=== PATIENT | female | born 2000 | race Two or more races ===

== ENCOUNTER 2024-04-11 00:53 | Inpatient (IN) | payer MEDICAID ==
[~2024-04-11] VITALS: Ht 157.5 cm; Wt 65.3 kg
[2024-04-11 02:09] LABS: EOSINOPHILS % (AUTO) 0.4 % (1.0-6.0); HEMATOCRIT 41.3 % (36-46); LYMPHOCYTES # (AUTO) 3.4 K/uL (1.0-4.8); LYMPHOCYTES % (AUTO) 32.6 % (22.0-44.0); MEAN CORPUSCULAR HEMOGLOBIN 30.2 pg (26.0-34.0); MEAN CORPUSCULAR HGB CONC 33.9 G/dL (31.0-37.0); MEAN CORPUSCULAR VOLUME 89 fL (80-100); MONOCYTES # (AUTO) 0.6 K/uL (0.1-1.0); MONOCYTES % (AUTO) 5.8 % (2.0-9.0); NEUTROPHILS # (AUTO) 6.3 K/uL (1.8-7.7); NEUTROPHILS % (AUTO) 60.2 % (40.0-70.0); PLATELET COUNT (AUTO) 258 K/uL (150-450); RED BLOOD CELL COUNT(AUTO) 4.64 MIL/uL (4.00-5.20); WHITE BLOOD COUNT (AUTO) 10.4 K/uL (4.5-11.0)
[2024-04-11 02:11] LABS: ANION GAP 8 mmol/L (8-16); CALCIUM, TOTAL 8.8 mg/dL (8.8-10.5); CARBON DIOXIDE 27 mmol/L (22-29); CHLORIDE 101 mmol/L (98-107); GLOMERULAR FILTR. RATE CALC > 60 mL/min (>60); GLUCOSE,RANDOM 102 mg/dL (70-110); POTASSIUM 3.2 mmol/L (3.5-5.1); SODIUM SERUM 136 mmol/L (136-145); UREA NITROGEN, BLOOD 13 mg/dL (7-18)
[2024-04-11 02:17] LABS: ALANINE AMINOTRANSFERASE 13 U/L (12-78); ALBUMIN 4.2 g/dL (3.4-5.0); ALKALINE PHOSPHATASE 67 U/L (46-116); ASPARTATE AMINOTRANSFERASE 11 U/L (15-37); BILIRUBIN,TOTAL 0.4 mg/dL (0.1-1.0)
[2024-04-11 02:23] LABS: ALCOHOL, BLOOD (SERUM) < 3 mg/dL (0-10)
[2024-04-11] MEDS ORDERED: ZOLPIDEM TARTRATE 10 MG TABLET PO PRN (02:45)
[2024-04-11] MEDS ORDERED: HALOPERIDOL 5 MG TABLET PO PRN (02:45)
[2024-04-11] MEDS ORDERED: LORazepam 2 MG TABLET PO PRN (02:45)
[2024-04-11 03:00] LABS: COVID AG,FIA SOURCE NASAL SWAB
[2024-04-11 03:17] LABS: SARS-COV2 (COVID) ANTIGEN,FIA Negative (Negative)
[2024-04-11] MEDS: POTASSIUM CHLORIDE 20 MEQ ER TABLET PO ONE ×2 (03:50→04:14)
[2024-04-11 06:03] VITALS: BP 137/82; PULSE 90; RESP 18; TEMP 97.5
[2024-04-11 06:11] VITALS: BP 137/82; PULSE 90; RESP 18; TEMP 97.5; O2SAT 99
[2024-04-11 08:40] VITALS: BP 122/85; PULSE 100; RESP 17; TEMP 97.5; O2SAT 100
[2024-04-11] MEDS ORDERED: MAG HYDROX/ALUMINUM HYD/SIMETH ES 30 ML SUSPENSION UDCUP PO PRN (10:45)
[2024-04-11] MEDS ORDERED: LOPERAMIDE HCL 2 MG CAPSULE PO PRN (10:45)
[2024-04-11] MEDS ORDERED: IBUPROFEN 400 MG TABLET PO PRN (10:45)
[2024-04-11] MEDS ORDERED: ALBUTEROL SULFATE HFA 90 MCG/PUFF 8 GM INHALER IH PRN (10:45)
[2024-04-11] MEDS ORDERED: DOCUSATE SODIUM 100 MG CAPSULE PO PRN (10:45)
[2024-04-11] MEDS ORDERED: MAGNESIUM HYDROXIDE SUSPENSION 30 ML UDCUP PO PRN (10:45)
[2024-04-11] MEDS ORDERED: NICOTINE 14 MG/24 HOUR PATCH TD PRN (10:45)
[2024-04-11] MEDS ORDERED: ONDANSETRON HCL 4 MG TABLET PO PRN (10:45)
[2024-04-11] MEDS ORDERED: GuaiFENesin/D-METHORPHAN [SUGAR-FREE] 200-20MG/10 ML SYRUP UDCUP PO PRN (10:45)
[2024-04-11] MEDS ORDERED: PETROLATUM,WHITE 28 GM JELLY TP PRN (10:45)
[2024-04-11] MEDS ORDERED: ACETAMINOPHEN 325 MG TABLET PO PRN (10:45)
[2024-04-11] MEDS ORDERED: CloNIDine HCL 0.1 MG TABLET PO PRN (10:45)
[2024-04-11] MEDS: OLANZapine 5 MG TABLET PO SCH (16:05)
[2024-04-11 20:22] VITALS: BP 112/77; PULSE 81; RESP 16; TEMP 98.1; O2SAT 98
[2024-04-12 11:47] LABS: HEMOGLOBIN A1C 5.1 % (3.8-5.6)
[2024-04-12 12:10] LABS: THYROID STIMULATING HORMONE 0.79 uIU/mL (0.36-3.74)
[2024-04-12 12:43] LABS: CHOL/HDL RATIO 4.5 (3.9-5.7)
[2024-04-12 17:30] VITALS: BP 110/89; PULSE 98; RESP 18; TEMP 98.5; O2SAT 99
[2024-04-12 21:12] VITALS: BP 124/73; PULSE 104; RESP 18; TEMP 97.5; O2SAT 99
[2024-04-13 08:50] VITALS: BP 114/82; PULSE 99; RESP 20; TEMP 97.9; O2SAT 100
[2024-04-14 08:18] VITALS: BP 131/76; PULSE 100; RESP 12; TEMP 98; O2SAT 99
[2024-04-14 21:29] VITALS: BP 144/94; PULSE 87; RESP 16; TEMP 98.1; O2SAT 97
[2024-04-15 08:32] VITALS: BP 122/76; PULSE 82; RESP 16; TEMP 97.6; O2SAT 96
[2024-04-15 20:49] VITALS: BP 127/74; PULSE 81; RESP 18; TEMP 98; O2SAT 97
[2024-04-16 08:29] VITALS: BP 137/72; PULSE 107; RESP 18; TEMP 97.8; O2SAT 98
[2024-04-16 08:47] LABS: APPEARANCE,URINE TURBID (CLEAR); BILIRUBIN,URINE NEGATIVE (NEGATIVE); COLOR,URINE DARK YELLOW (YELLOW); GLUCOSE, URINE (UA) NEGATIVE (NEGATIVE); KETONES,URINE NEGATIVE (NEGATIVE); LEUKOCYTE ESTERASE ,URINE NEGATIVE (NEGATIVE); NITRATE,URINE NEGATIVE (NEGATIVE); OCCULT BLOOD,URINE SMALL (NEGATIVE); PROTEIN,URINE NEGATIVE (NEGATIVE); SPECIFIC GRAVITIY, URINE 1.031 (1.003-1.030); UROBILINOGEN,URINE <=1.0 mg/dL (<=1.0)
[2024-04-16 08:55] LABS: AMORPHOUS SEDIMENT,UR Many /LPF (None Seen); BACTERIA,URINE None Seen /HPF (None Seen); RBC,URINE 0-2 /HPF (0-2); WBC,URINE None Seen /HPF (0-5)
[2024-04-16 08:58] LABS: ALCOHOL, URINE DRUG SCREEN NEGATIVE (NEGATIVE); AMPHET/METH SCREEN,URINE NEGATIVE (NEGATIVE); BARBITURATE SCREEN, URINE NEGATIVE (NEGATIVE); BENZODIAZEPINES SCREEN,URINE NEGATIVE (NEGATIVE); CANNABINOID SCREEN,URINE NEGATIVE (NEGATIVE); COCAINE SCREEN,URINE NEGATIVE (NEGATIVE); METHADONE SCREEN, URINE NEGATIVE (NEGATIVE); OPIATE SCREEN,URINE NEGATIVE (NEGATIVE); PHENCYCLIDINE SCREEN,URINE NEGATIVE (NEGATIVE)
[2024-04-16 21:28] VITALS: BP 136/97; PULSE 91; RESP 16; TEMP 97.5; O2SAT 99
[2024-04-17 09:52] VITALS: BP 113/95; PULSE 104; RESP 18; TEMP 97.2; O2SAT 99
[2024-04-17 23:30] VITALS: BP 114/89; PULSE 101; RESP 18; TEMP 97.5; O2SAT 98
[2024-04-18 08:17] VITALS: BP 154/70; PULSE 92; RESP 16; TEMP 97.6; O2SAT 100
[2024-04-18] MEDS ORDERED: OLAN5TAB52 PO (13:54)
== END 2024-04-18 16:54 | disposition home or self-care (01) | DRG 750 ==
LOC: EMS 00:56 → B3A 03:01
PROVIDERS: ADMIT Psychiatry & Neurology Child & Adolescent Psychiatry; ATTEND Psychiatry & Neurology Child & Adolescent Psychiatry
PROC: GZHZZZZ Group Psychotherapy (ICD-10-PCS; principal; 2024-04-12)
PROC: GZ52ZZZ Individual Psychotherapy, Cognitive (ICD-10-PCS; 2024-04-12)
DX: F25.9 Schizoaffective disorder, unspecified (principal); R45.851 Suicidal ideations; E87.6 Hypokalemia; F41.9 Anxiety disorder, unspecified; Z20.822 Contact with and (suspected) exposure to COVID-19; F12.90 Cannabis use, unspecified, uncomplicated; Z91.148 Patient's other noncompliance with medication regimen for other reason
CPT/HCPCS: 80053; 80061; 80307; 81001; 83036; 84132; 84443; 84703; 85025; G0480

== ENCOUNTER 2024-10-13 22:30 | Emergency (ER) | payer OTHER ==
[~2024-10-13] VITALS: Ht 160 cm; Wt 72.7 kg
[~2024-10-13 22:30] MED LIST: OLAN5TAB52 PO
[2024-10-13 23:13] VITALS: TEMP 98.9
[2024-10-13 23:20] LABS: BASOPHILS % (AUTO) 0.8 % (0.0-2.0); EOSINOPHILS % (AUTO) 0.6 % (1.0-6.0); HEMATOCRIT 41.2 % (36-46); HEMOGLOBIN 13.8 g/dL (12.0-16.0); LYMPHOCYTES # (AUTO) 1.9 K/uL (1.0-4.8); LYMPHOCYTES % (AUTO) 25.2 % (22.0-44.0); MEAN CORPUSCULAR HEMOGLOBIN 30.3 pg (26.0-34.0); MEAN CORPUSCULAR HGB CONC 33.6 G/dL (31.0-37.0); MEAN CORPUSCULAR VOLUME 90 fL (80-100); MONOCYTES # (AUTO) 0.5 K/uL (0.1-1.0); MONOCYTES % (AUTO) 6.4 % (2.0-9.0); PLATELET COUNT (AUTO) 231 K/uL (150-450); RED BLOOD CELL COUNT(AUTO) 4.57 MIL/uL (4.00-5.20); RED CELL DISTRIBUTION WIDTH 13.3 % (11.5-14.5); WHITE BLOOD COUNT (AUTO) 7.5 K/uL (4.5-11.0)
[2024-10-13 23:50] LABS: ALCOHOL, BLOOD (SERUM) < 3 mg/dL (0-10)
[2024-10-14 00:11] LABS: ANION GAP 11 mmol/L (8-16); CALCIUM, TOTAL 9.2 mg/dL (8.8-10.5); CARBON DIOXIDE 25 mmol/L (22-29); CHLORIDE 103 mmol/L (98-107); CREATININE 0.63 mg/dL (0.60-1.30); GLOMERULAR FILTR. RATE CALC > 60 mL/min (>60); GLUCOSE,RANDOM 97 mg/dL (70-110); POTASSIUM 3.8 mmol/L (3.5-5.1); SODIUM SERUM 139 mmol/L (136-145); UREA NITROGEN, BLOOD 16 mg/dL (7-18)
[2024-10-14 01:21] VITALS: BP 122/78; PULSE 90; RESP 16; O2SAT 100
[2024-10-14 01:26] LABS: COVID AG,FIA SOURCE NASAL SWAB
[2024-10-14 01:31] LABS: ALCOHOL, URINE DRUG SCREEN NEGATIVE (NEGATIVE); AMPHET/METH SCREEN,URINE NEGATIVE (NEGATIVE); BARBITURATE SCREEN, URINE NEGATIVE (NEGATIVE); BENZODIAZEPINES SCREEN,URINE NEGATIVE (NEGATIVE); CANNABINOID SCREEN,URINE NEGATIVE (NEGATIVE); COCAINE SCREEN,URINE NEGATIVE (NEGATIVE); METHADONE SCREEN, URINE NEGATIVE (NEGATIVE); OPIATE SCREEN,URINE NEGATIVE (NEGATIVE); PHENCYCLIDINE SCREEN,URINE NEGATIVE (NEGATIVE)
[2024-10-14 01:36] LABS: SARS-COV2 (COVID) ANTIGEN,FIA Negative (Negative)
== END 2024-10-14 06:39 | disposition home or self-care (01) ==
LOC: EMS 22:38
DX: F25.9 Schizoaffective disorder, unspecified (principal); Z65.3 Problems related to other legal circumstances; Z20.822 Contact with and (suspected) exposure to COVID-19
CPT/HCPCS: 99285; 87426; 80048; 85025; 36415; 80307; G0480

== ENCOUNTER 2024-10-31 18:19 | Inpatient (IN) | payer MEDICAID, OTHER ==
[~2024-10-31] VITALS: Ht 157.5 cm; Wt 70.8 kg
[2024-10-31 19:48] LABS: EOSINOPHILS % (AUTO) 0.7 % (1.0-6.0); HEMATOCRIT 41.5 % (36-46); HEMOGLOBIN 13.9 g/dL (12.0-16.0); LYMPHOCYTES # (AUTO) 2.4 K/uL (1.0-4.8); LYMPHOCYTES % (AUTO) 31.6 % (22.0-44.0); MEAN CORPUSCULAR HEMOGLOBIN 30.1 pg (26.0-34.0); MEAN CORPUSCULAR HGB CONC 33.4 G/dL (31.0-37.0); MEAN CORPUSCULAR VOLUME 90 fL (80-100); MONOCYTES # (AUTO) 0.4 K/uL (0.1-1.0); MONOCYTES % (AUTO) 5.2 % (2.0-9.0); NEUTROPHILS # (AUTO) 4.7 K/uL (1.8-7.7); NEUTROPHILS % (AUTO) 61.5 % (40.0-70.0); PLATELET COUNT (AUTO) 240 K/uL (150-450); RED CELL DISTRIBUTION WIDTH 12.8 % (11.5-14.5); WHITE BLOOD COUNT (AUTO) 7.7 K/uL (4.5-11.0)
[2024-10-31 20:00] LABS: ANION GAP 11 mmol/L (8-16); CARBON DIOXIDE 26 mmol/L (22-29); CHLORIDE 103 mmol/L (98-107); CREATININE 0.78 mg/dL (0.60-1.30); GLOMERULAR FILTR. RATE CALC > 60 mL/min (>60); GLUCOSE,RANDOM 94 mg/dL (70-110); POTASSIUM 3.9 mmol/L (3.5-5.1); SODIUM SERUM 140 mmol/L (136-145); UREA NITROGEN, BLOOD 15 mg/dL (7-18)
[2024-10-31 20:02] LABS: ALCOHOL, BLOOD (SERUM) < 3 mg/dL (0-10)
[2024-11-01 00:27] LABS: COVID AG,FIA SOURCE NASAL SWAB
[2024-11-01 00:32] LABS: SARS-COV2 (COVID) ANTIGEN,FIA Negative (Negative)
[2024-11-01 14:15] LABS: PH,URINE DRUG SCREEN 5.5 (5.0-8.0)
[2024-11-01 14:25] LABS: ALCOHOL, URINE DRUG SCREEN NEGATIVE (NEGATIVE); AMPHET/METH SCREEN,URINE NEGATIVE (NEGATIVE); BARBITURATE SCREEN, URINE NEGATIVE (NEGATIVE); BENZODIAZEPINES SCREEN,URINE NEGATIVE (NEGATIVE); CANNABINOID SCREEN,URINE NEGATIVE (NEGATIVE); COCAINE SCREEN,URINE NEGATIVE (NEGATIVE); METHADONE SCREEN, URINE NEGATIVE (NEGATIVE); OPIATE SCREEN,URINE NEGATIVE (NEGATIVE); PHENCYCLIDINE SCREEN,URINE NEGATIVE (NEGATIVE)
[2024-11-01] MEDS ORDERED: HALOPERIDOL 5 MG TABLET PO PRN (15:45)
[2024-11-01] MEDS ORDERED: ZOLPIDEM TARTRATE 10 MG TABLET PO PRN (15:45)
[2024-11-01 17:02] VITALS: BP 109/88; PULSE 102; RESP 17; TEMP 97.5; O2SAT 100
[2024-11-01 17:04] VITALS: BP 109/88; PULSE 102; RESP 17; TEMP 97.5; O2SAT 96
[2024-11-01] MEDS ORDERED: INFLUENZA VIRUS VACCINE TVS (6MO+) 2024-25/PF 45 MCG/0.5 ML SYRINGE IM. ONE (17:45)
[2024-11-01] MEDS: LORazepam 2 MG TABLET PO PRN (21:10)
[2024-11-01 21:30] VITALS: BP 122/63; PULSE 98; RESP 18; TEMP 98
[2024-11-02 08:42] VITALS: BP 108/79; PULSE 100; RESP 16; TEMP 98.2; O2SAT 98
[2024-11-02 10:13] LABS: HEMOGLOBIN A1C 4.9 % (3.8-5.6)
[2024-11-02 10:31] LABS: ALANINE AMINOTRANSFERASE 19 U/L (12-78); ALBUMIN 3.1 g/dL (3.4-5.0); ALKALINE PHOSPHATASE 55 U/L (46-116); ANION GAP 7 mmol/L (8-16); ASPARTATE AMINOTRANSFERASE 15 U/L (15-37); BILIRUBIN,TOTAL 0.3 mg/dL (0.1-1.0); CALCIUM, TOTAL 8.5 mg/dL (8.8-10.5); CARBON DIOXIDE 26 mmol/L (22-29); CHLORIDE 105 mmol/L (98-107); CHOL/HDL RATIO 3.2 (3.9-5.7); CHOLESTEROL 138 mg/dL (131-200); CREATININE 0.67 mg/dL (0.60-1.30); FREE T4 (FREE THYROXINE) 1.05 ng/dL (0.76-1.46); GLOMERULAR FILTR. RATE CALC > 60 mL/min (>60); GLUCOSE,RANDOM 100 mg/dL (70-110); HCG,QUANTITATIVE < 1 mIU/mL (0-6); HDL CHOLESTEROL 43 mg/dL (40-60); LDL CHOL (CALC.) 71 mg/dL (0-130); POTASSIUM 3.5 mmol/L (3.5-5.1); SODIUM SERUM 138 mmol/L (136-145); THYROID STIMULATING HORMONE 3.63 uIU/mL (0.36-3.74); TRIGLYCERIDES 118 mg/dL (15-150); UREA NITROGEN, BLOOD 20 mg/dL (7-18)
[2024-11-02] MEDS: OLANZapine 5 MG TABLET PO SCH (10:57)
[2024-11-02 21:45] VITALS: BP 124/80; PULSE 97; RESP 18; TEMP 97; O2SAT 99
[2024-11-03 08:33] VITALS: BP 116/71; PULSE 98; RESP 17; TEMP 98.1; O2SAT 100
[2024-11-03 21:13] VITALS: BP 124/66; PULSE 98; RESP 17; TEMP 97; O2SAT 97
[2024-11-04 08:46] VITALS: BP 107/72; PULSE 78; RESP 19; TEMP 97.3; O2SAT 96
[2024-11-04 20:15] VITALS: BP 111/63; PULSE 80; RESP 18; TEMP 98.4; O2SAT 100
[2024-11-05 08:08] VITALS: BP 102/68; PULSE 92; RESP 18; TEMP 97.1; O2SAT 98
== END 2024-11-05 16:25 | disposition home or self-care (01) | DRG 750 ==
LOC: EMS 18:19 → B2S 11-01 13:51
PROVIDERS: ADMIT Psychiatry & Neurology Child & Adolescent Psychiatry; ATTEND Psychiatry & Neurology Child & Adolescent Psychiatry
PROC: GZ56ZZZ Individual Psychotherapy, Supportive (ICD-10-PCS; principal; 2024-11-02)
DX: F20.9 Schizophrenia, unspecified (principal); E44.1 Mild protein-calorie malnutrition; E88.09 Other disorders of plasma-protein metabolism, not elsewhere classified; F20.0 Paranoid schizophrenia; R45.850 Homicidal ideations; Z20.822 Contact with and (suspected) exposure to COVID-19; G47.00 Insomnia, unspecified; Z68.28 Body mass index [BMI] 28.0-28.9, adult
CPT/HCPCS: 80048; 80053; 80061; 80307; 83036; 84439; 84443; 84702; 84703; 85025; G0480

== ENCOUNTER 2025-01-12 23:35 | Inpatient (IN) | payer MEDICAID, OTHER ==
[~2025-01-12] VITALS: Ht 160 cm; Wt 74.8 kg
[2025-01-13] MEDS ORDERED: LORazepam 2 MG TABLET PO PRN (01:15)
[2025-01-13] MEDS ORDERED: ZOLPIDEM TARTRATE 10 MG TABLET PO PRN (01:15)
[2025-01-13] MEDS ORDERED: HALOPERIDOL 5 MG TABLET PO PRN (01:15)
[2025-01-13 02:28] VITALS: O2SAT 95
[2025-01-13 02:29] LABS: BASOPHILS % (AUTO) 0.6 % (0.0-2.0); EOSINOPHILS % (AUTO) 0.2 % (1.0-6.0); HEMATOCRIT 44.8 % (36-46); LYMPHOCYTES # (AUTO) 2.7 K/uL (1.0-4.8); LYMPHOCYTES % (AUTO) 26.1 % (22.0-44.0); MEAN CORPUSCULAR HGB CONC 33.4 G/dL (31.0-37.0); MEAN CORPUSCULAR VOLUME 90 fL (80-100); MONOCYTES # (AUTO) 0.5 K/uL (0.1-1.0); MONOCYTES % (AUTO) 4.8 % (2.0-9.0); NEUTROPHILS # (AUTO) 7.2 K/uL (1.8-7.7); NEUTROPHILS % (AUTO) 68.3 % (40.0-70.0); PLATELET COUNT (AUTO) 249 K/uL (150-450); RED BLOOD CELL COUNT(AUTO) 4.98 MIL/uL (4.00-5.20); RED CELL DISTRIBUTION WIDTH 13.2 % (11.5-14.5); WHITE BLOOD COUNT (AUTO) 10.5 K/uL (4.5-11.0)
[2025-01-13] MEDS: DiphenhydrAMINE HCL 25 MG CAPSULE PO ONE (02:30)
[2025-01-13] MEDS: LORazepam 2 MG TABLET PO ONE (02:30)
[2025-01-13] MEDS: OLANZapine 10 MG TABLET PO ONE (02:30)
[2025-01-13 02:32] LABS: COVID AG,FIA SOURCE NASAL SWAB
[2025-01-13 02:37] LABS: ANION GAP 10 mmol/L (8-16); CALCIUM, TOTAL 8.9 mg/dL (8.8-10.5); CARBON DIOXIDE 28 mmol/L (22-29); CHLORIDE 102 mmol/L (98-107); CREATININE 0.86 mg/dL (0.60-1.30); GLOMERULAR FILTR. RATE CALC > 60 mL/min (>60); GLUCOSE,RANDOM 100 mg/dL (70-110); POTASSIUM 3.5 mmol/L (3.5-5.1); SODIUM SERUM 140 mmol/L (136-145); UREA NITROGEN, BLOOD 18 mg/dL (7-18)
[2025-01-13 02:54] LABS: ALCOHOL, BLOOD (SERUM) < 3 mg/dL (0-10)
[2025-01-13 03:21] LABS: SARS-COV2 (COVID) ANTIGEN,FIA Negative (Negative)
[2025-01-13 05:46] VITALS: BP 130/80; PULSE 76; RESP 18; TEMP 97.8; O2SAT 96
[2025-01-13] MEDS ORDERED: PNEUMOCOCCAL VACCINE POLYVALENT 0.5 ML SYRINGE [PPSV23] IM. ONE (06:15)
[2025-01-13] MEDS ORDERED: INFLUENZA VIRUS VACCINE TVS (6MO+) 2024-25/PF 45 MCG/0.5 ML SYRINGE IM. ONE (06:15)
[2025-01-13 08:10] VITALS: RESP 16
[2025-01-13] MEDS ORDERED: MAG HYDROX/ALUMINUM HYD/SIMETH ES 30 ML SUSPENSION UDCUP PO PRN (09:30)
[2025-01-13] MEDS ORDERED: CloNIDine HCL 0.1 MG TABLET PO PRN (09:30)
[2025-01-13] MEDS ORDERED: LOPERAMIDE HCL 2 MG CAPSULE PO PRN (09:30)
[2025-01-13] MEDS ORDERED: MAGNESIUM HYDROXIDE SUSPENSION 30 ML UDCUP PO PRN (09:30)
[2025-01-13] MEDS ORDERED: PETROLATUM,WHITE 28 GM JELLY TP PRN (09:30)
[2025-01-13] MEDS ORDERED: ACETAMINOPHEN 325 MG TABLET PO PRN (09:30)
[2025-01-13] MEDS ORDERED: ALBUTEROL SULFATE HFA 90 MCG/PUFF 8 GM INHALER IH PRN (09:30)
[2025-01-13] MEDS ORDERED: IBUPROFEN 400 MG TABLET PO PRN (09:30)
[2025-01-13] MEDS ORDERED: DOCUSATE SODIUM 100 MG CAPSULE PO PRN (09:30)
[2025-01-13] MEDS ORDERED: GuaiFENesin/D-METHORPHAN [SUGAR-FREE] 200-20MG/10 ML SYRUP UDCUP PO PRN (09:30)
[2025-01-13] MEDS ORDERED: ONDANSETRON 4 MG TABLET PO PRN (09:30)
[2025-01-13] MEDS ORDERED: NICOTINE 14 MG/24 HOUR PATCH TD PRN (09:30)
[2025-01-13] MEDS: OLANZapine 5 MG TABLET PO SCH (14:10)
[2025-01-13 20:10] VITALS: BP 94/65; PULSE 99; RESP 16; TEMP 97.9; O2SAT 96
[2025-01-14 08:40] VITALS: RESP 18
[2025-01-14 09:30] LABS: HEMOGLOBIN A1C 5.1 % (3.8-5.6)
[2025-01-14 10:18] LABS: CHOL/HDL RATIO 4.2 (3.9-5.7); THYROID STIMULATING HORMONE 0.88 uIU/mL (0.36-3.74)
[2025-01-14 20:25] VITALS: BP 123/85; PULSE 98; RESP 16; TEMP 97.9; O2SAT 98
[2025-01-15 08:57] VITALS: BP 140/75; PULSE 66; RESP 17; TEMP 97.4; O2SAT 98
[2025-01-15 20:08] VITALS: BP 115/65; PULSE 87; RESP 16; TEMP 97.4; O2SAT 94
[2025-01-16 08:21] VITALS: BP 122/75; PULSE 80; RESP 17; TEMP 97.4; O2SAT 98
[2025-01-16 20:06] VITALS: BP 118/72; PULSE 96; RESP 16; TEMP 97.2; O2SAT 95
[2025-01-17 08:24] VITALS: BP 145/88; PULSE 90; RESP 17; TEMP 97.7; O2SAT 99
[2025-01-17 21:07] VITALS: BP 91/64; PULSE 100; RESP 17; TEMP 97; O2SAT 97
[2025-01-18 08:12] LABS: APPEARANCE,URINE TURBID (CLEAR); BILIRUBIN,URINE NEGATIVE (NEGATIVE); COLOR,URINE LIGHT ORANGE (YELLOW); GLUCOSE, URINE (UA) NEGATIVE (NEGATIVE); KETONES,URINE NEGATIVE (NEGATIVE); LEUKOCYTE ESTERASE ,URINE LARGE (NEGATIVE); NITRATE,URINE NEGATIVE (NEGATIVE); OCCULT BLOOD,URINE NEGATIVE (NEGATIVE); PROTEIN,URINE TRACE mg/dL (NEGATIVE); SPECIFIC GRAVITIY, URINE 1.029 (1.003-1.030); UROBILINOGEN,URINE <=1.0 mg/dL (<=1.0)
[2025-01-18 08:15] VITALS: RESP 18
[2025-01-18 08:23] LABS: ALCOHOL, URINE DRUG SCREEN NEGATIVE (NEGATIVE); AMPHET/METH SCREEN,URINE NEGATIVE (NEGATIVE); BARBITURATE SCREEN, URINE NEGATIVE (NEGATIVE); BENZODIAZEPINES SCREEN,URINE NEGATIVE (NEGATIVE); CANNABINOID SCREEN,URINE POSITIVE (NEGATIVE); COCAINE SCREEN,URINE NEGATIVE (NEGATIVE); METHADONE SCREEN, URINE NEGATIVE (NEGATIVE); OPIATE SCREEN,URINE NEGATIVE (NEGATIVE); PHENCYCLIDINE SCREEN,URINE NEGATIVE (NEGATIVE)
[2025-01-18 09:06] LABS: BACTERIA,URINE Many /HPF (None Seen); RBC,URINE None Seen /HPF (0-2); SQUAMOUS EPITHELIAL CELL,UR Few /LPF (None Seen)
[2025-01-18] MEDS: CEPHALEXIN MONOHYDRATE 500 MG CAPSULE PO SCH (13:10)
[2025-01-19 08:21] VITALS: BP 98/60; PULSE 83; RESP 16; TEMP 97.6; O2SAT 96
[2025-01-19 20:15] VITALS: BP 107/60; PULSE 90; RESP 17; TEMP 97.3
[2025-01-20 12:45] VITALS: BP 117/74; PULSE 92; RESP 15; TEMP 98.2; O2SAT 100
[2025-01-20 20:18] VITALS: BP 140/81; PULSE 97; RESP 17; TEMP 97.7; O2SAT 97
[2025-01-21 08:44] VITALS: BP 124/78; PULSE 100; RESP 17; TEMP 97; O2SAT 99
[2025-01-21 20:11] VITALS: BP 131/80; PULSE 99; RESP 16; TEMP 98.2; O2SAT 96
[2025-01-22 08:37] VITALS: BP 123/75; PULSE 95; RESP 17; TEMP 97.8; O2SAT 96
[2025-01-22 20:23] VITALS: BP 126/80; PULSE 84; RESP 16; TEMP 97.7; O2SAT 96
[2025-01-23 08:00] VITALS: BP 129/76; PULSE 93; RESP 16; TEMP 97.9; O2SAT 97
[2025-01-23 21:28] VITALS: BP 120/78; PULSE 89; RESP 16; TEMP 97.9; O2SAT 97
[2025-01-24 08:23] VITALS: BP 100/64; PULSE 66; RESP 14; TEMP 97.9; O2SAT 98
[2025-01-24 20:02] VITALS: BP 134/89; PULSE 100; RESP 18; TEMP 98.1
[2025-01-25 08:19] VITALS: BP 112/67; PULSE 84; RESP 17; TEMP 97.6; O2SAT 97
[2025-01-25 20:14] VITALS: BP 109/73; PULSE 100; RESP 16; TEMP 98.2; O2SAT 97
[2025-01-25] MEDS: OLANZapine 10 MG TABLET PO SCH (20:30)
[2025-01-26 08:42] VITALS: BP 95/60; PULSE 85; RESP 18; TEMP 97.8; O2SAT 97
[2025-01-26 20:25] VITALS: BP 114/85; PULSE 99; RESP 16; TEMP 98.3; O2SAT 98
[2025-01-27 08:51] VITALS: BP 121/83; PULSE 100; RESP 16; TEMP 97.6; O2SAT 96
[2025-01-27] MEDS ORDERED: OLAN10TA74 PO (09:29)
== END 2025-01-27 11:13 | disposition home or self-care (01) | DRG 750 ==
LOC: EMS 23:35 → B3A 01-13 03:29 → B2S 01-19 21:03
PROVIDERS: ADMIT Psychiatry & Neurology Child & Adolescent Psychiatry; ATTEND Psychiatry & Neurology Child & Adolescent Psychiatry
PROC: GZ56ZZZ Individual Psychotherapy, Supportive (ICD-10-PCS; principal; 2025-01-13)
PROC: GZHZZZZ Group Psychotherapy (ICD-10-PCS; 2025-01-13)
PROC: GZ52ZZZ Individual Psychotherapy, Cognitive (ICD-10-PCS; 2025-01-13)
DX: F20.0 Paranoid schizophrenia (principal); F41.9 Anxiety disorder, unspecified; G47.00 Insomnia, unspecified; Z20.822 Contact with and (suspected) exposure to COVID-19; I10 Essential (primary) hypertension; Z79.899 Other long term (current) drug therapy
CPT/HCPCS: 80048; 80061; 80307; 81001; 83036; 84443; 84703; 85025; 87086; 99285; G0480